=== PATIENT | male | born 1945 | race Caucasian/White ===

== ENCOUNTER 2022-11-15 20:49 | Inpatient (IN) | payer MEDICARE, OTHER ==
[~2022-11-15] VITALS: Ht 165.1 cm; Wt 68.2 kg
[2022-11-15 20:55] VITALS: BP 123/72
[2022-11-15] MEDS ORDERED: REMEDY ESSENTIAL ZINC PASTE 113 GM TOP PRN (21:45)
[2022-11-15] MEDS ORDERED: FERR-56 PO (22:08)
[2022-11-15] MEDS ORDERED: PIPE3.3749 IV (22:08)
[2022-11-15] MEDS ORDERED: ENOX40DI SQ (22:08)
[2022-11-15] MEDS ORDERED: TAMS-3 PO (22:08)
[2022-11-15] MEDS ORDERED: ACET325T53 PO (22:08)
[2022-11-15] MEDS ORDERED: METO-356 PO (22:08)
[2022-11-15] MEDS ORDERED: BENA20TA9 PO (22:08)
[2022-11-15] MEDS ORDERED: AMLO-212 PO (22:08)
[2022-11-15] MEDS ORDERED: zofran IV (22:08)
[2022-11-15] MEDS ORDERED: DULO20CA PO (22:08)
[2022-11-15] MEDS ORDERED: MAGN400O6 PO (22:08)
[2022-11-15] MEDS ORDERED: VANC750F2 IV (22:08)
[2022-11-15] MEDS ORDERED: MAG355OR18 PO (22:08)
[2022-11-15] MEDS ORDERED: ZOLP5TAB8 PO (22:08)
[2022-11-15] MEDS ORDERED: RIVA1PAT TP (22:08)
[2022-11-15] MEDS ORDERED: GABA-532 PO (22:08)
[2022-11-15] MEDS ORDERED: DOCU100C36 PO (22:08)
[2022-11-16 04:00] VITALS: BP 117/71
[2022-11-16] MEDS ORDERED: PIPERACILLIN SODIUM/TAZOBACTAM 3.375 G in IV DEXTROSE 5% 50 ML IV ONE (05:45)
[2022-11-16] MEDS ORDERED: PIPERACILLIN SODIUM/TAZOBACTAM 3.375 G in IV DEXTROSE 5% 50 ML IV SCH (06:00)
[2022-11-16 07:46] VITALS: BP 123/64
[2022-11-16] MEDS ORDERED: ONDA4TAB5 IV (13:05)
[2022-11-16] MEDS ORDERED: MAG HYDROX/AL HYDROX/SIMETH 30 ML LIQUID UDC PO PRN (14:15)
[2022-11-16] MEDS ORDERED: ONDANSETRON HCL 4 MG TABLET PO PRN (14:15)
[2022-11-16] MEDS ORDERED: ZOLPIDEM 5 MG TABLET PO PRN (14:15)
[2022-11-16] MEDS ORDERED: ACETAMINOPHEN 325 MG TABLET PO PRN (14:15)
[2022-11-16] MEDS ORDERED: PIPERACILLIN SODIUM/TAZO 3.375 GM VIAL IV SCH (14:15)
[2022-11-16] MEDS ORDERED: MAGNESIUM HYDROXIDE 30 ML LIQUID UDC PO PRN (14:15)
[2022-11-16] MEDS: BENAZEPRIL HCL 20 MG TABLET PO SCH (15:02)
[2022-11-16] MEDS: AMLODIPINE 5 MG TABLET PO SCH (15:02)
[2022-11-16] MEDS: DULOXETINE 20 MG CAPSULE.DR PO SCH (15:02)
[2022-11-16] MEDS: METOPROLOL SUCCINATE XL 25 MG TAB.SR.24H PO SCH (15:02)
[2022-11-16] MEDS: RIVASTIGMINE 4.6 MG PATCH TD SCH (15:05)
[2022-11-16] MEDS: PIPERACILLIN SODIUM/TAZOBACTAM 3.375 G in IV DEXTROSE 5% 100 ML IV SCH ×2 (15:30→23:54)
[2022-11-16 16:25] VITALS: BP 110/69
[2022-11-16] MEDS: FERROUS SULFATE 325 MG TABEC PO SCH (17:05)
[2022-11-16] MEDS: GABAPENTIN 300 MG CAPSULE PO SCH (17:05)
[2022-11-16] MEDS: DOCUSATE SODIUM 100 MG CAPSULE PO SCH (17:05)
[2022-11-16 17:14] LABS: HEMATOCRIT 34.1 % (36.7-47.1); MEAN CORPUSCULAR HEMOGLOBIN 27.5 uug (23.8-33.4); MEAN CORPUSCULAR VOLUME 81.7 fL (73.0-96.2); PLATELET COUNT (AUTO) 371 K/uL (152-348)
[2022-11-16 17:40] LABS: CREATININE 0.8 mg/dL (0.6-1.3)
[2022-11-16 17:47] LABS: POTASSIUM 2.8 mmol/L (3.5-5.1)
[2022-11-16 17:52] LABS: BILIRUBIN,TOTAL 0.3 mg/dL (0.2-1.0); TOTAL PROTEIN, SERUM 5.9 g/dL (6.4-8.2)
[2022-11-16] MEDS ORDERED: POTASSIUM CHLORIDE 20 MEQ TAB.PRT.SR PO ONE (18:15)
[2022-11-16] MEDS: VANCOMYCIN IV 750 MG in IV DEXTROSE 5% 250 ML IV SCH (18:25)
[2022-11-16 20:08] VITALS: BP 114/62
[2022-11-16] MEDS: TAMSULOSIN HCL 0.4 MG CAP.SR.24H PO SCH (20:28)
[2022-11-16] MEDS: ENOXAPARIN SODIUM 40 MG/0.4 ML DISP.SYRIN SQ SCH (20:30)
[2022-11-17] MEDS ORDERED: POTASSIUM CHLORIDE 10 MEQ TAB.PRT.SR PO ONE (01:00)
[2022-11-17 04:00] VITALS: BP 98/61
[2022-11-17] MEDS: VANCOMYCIN IV 750 MG in IV DEXTROSE 5% 250 ML IV SCH ×2 (06:02→17:49)
[2022-11-17] MEDS: PIPERACILLIN SODIUM/TAZOBACTAM 3.375 G in IV DEXTROSE 5% 100 ML IV SCH ×3 (07:13→21:24)
[2022-11-17 07:48] VITALS: BP 100/61
[2022-11-17] MEDS: FERROUS SULFATE 325 MG TABEC PO SCH ×2 (08:34→16:25)
[2022-11-17] MEDS: BENAZEPRIL HCL 20 MG TABLET PO SCH ×2 (08:34→08:36)
[2022-11-17] MEDS: GABAPENTIN 300 MG CAPSULE PO SCH ×2 (08:34→16:31)
[2022-11-17] MEDS: DULOXETINE 20 MG CAPSULE.DR PO SCH (08:34)
[2022-11-17] MEDS: METOPROLOL SUCCINATE XL 25 MG TAB.SR.24H PO SCH (08:35)
[2022-11-17] MEDS: RIVASTIGMINE 4.6 MG PATCH TD SCH (08:35)
[2022-11-17] MEDS: DOCUSATE SODIUM 100 MG CAPSULE PO SCH ×2 (08:35→16:25)
[2022-11-17] MEDS: AMLODIPINE 5 MG TABLET PO SCH ×2 (08:35→08:36)
[2022-11-17 15:50] VITALS: BP 102/54
[2022-11-17 20:10] VITALS: BP 103/64
[2022-11-17] MEDS: ENOXAPARIN SODIUM 40 MG/0.4 ML DISP.SYRIN SQ SCH (20:27)
[2022-11-17] MEDS: TAMSULOSIN HCL 0.4 MG CAP.SR.24H PO SCH (20:27)
[2022-11-18 04:11] VITALS: BP 122/69
[2022-11-18] MEDS: PIPERACILLIN SODIUM/TAZOBACTAM 3.375 G in IV DEXTROSE 5% 100 ML IV SCH ×3 (05:32→21:23)
[2022-11-18] MEDS: VANCOMYCIN IV 750 MG in IV DEXTROSE 5% 250 ML IV SCH (05:32)
[2022-11-18 06:19] LABS: HEMATOCRIT 33.3 % (36.7-47.1); MEAN CORPUSCULAR HEMOGLOBIN 27.7 uug (23.8-33.4); MEAN CORPUSCULAR VOLUME 81.9 fL (73.0-96.2); PLATELET COUNT (AUTO) 342 K/uL (152-348)
[2022-11-18 07:31] LABS: ALANINE AMINOTRANSFERASE 49 U/L (16-63); ALKALINE PHOSPHATASE 183 U/L (50-136); ASPARTATE AMINOTRANSFERASE 26 U/L (15-37); BILIRUBIN,TOTAL 0.3 mg/dL (0.2-1.0); CARBON DIOXIDE 23 mmol/L (21-32); CHLORIDE 103 mmol/L (98-107); CREATININE 0.7 mg/dL (0.6-1.3); GLUCOSE 101 mg/dL (74-106); MAGNESIUM 1.9 mg/dL (1.8-2.4); PHOSPHOROUS 3.9 mg/dL (2.5-4.9); POTASSIUM 3.5 mmol/L (3.5-5.1); UREA NITROGEN, BLOOD 4 mg/dL (7-18)
[2022-11-18 08:16] VITALS: BP 104/56
[2022-11-18] MEDS: DULOXETINE 20 MG CAPSULE.DR PO SCH (08:34)
[2022-11-18] MEDS: FERROUS SULFATE 325 MG TABEC PO SCH ×2 (08:35→17:28)
[2022-11-18] MEDS: RIVASTIGMINE 4.6 MG PATCH TD SCH (08:35)
[2022-11-18] MEDS: DOCUSATE SODIUM 100 MG CAPSULE PO SCH ×2 (08:35→17:28)
[2022-11-18] MEDS: GABAPENTIN 300 MG CAPSULE PO SCH ×2 (08:35→17:28)
[2022-11-18] MEDS: AMLODIPINE 5 MG TABLET PO SCH (08:41)
[2022-11-18] MEDS: METOPROLOL SUCCINATE XL 25 MG TAB.SR.24H PO SCH (08:42)
[2022-11-18] MEDS: BENAZEPRIL HCL 20 MG TABLET PO SCH (08:43)
[2022-11-18] MEDS: PROTEIN SUPPLEMENT (PROSTAT) 30 ML LIQUID PO SCH ×2 (10:31→17:18)
[2022-11-18 16:04] VITALS: BP 103/60
[2022-11-18 20:38] VITALS: BP 107/55
[2022-11-18] MEDS: METRONIDAZOLE 500 MG TABLET PO SCH (20:50)
[2022-11-18] MEDS: ENOXAPARIN SODIUM 40 MG/0.4 ML DISP.SYRIN SQ SCH (20:50)
[2022-11-18] MEDS: TAMSULOSIN HCL 0.4 MG CAP.SR.24H PO SCH (20:50)
[2022-11-19 04:15] VITALS: BP 102/63
[2022-11-19] MEDS: METRONIDAZOLE 500 MG TABLET PO SCH ×3 (05:07→21:38)
[2022-11-19] MEDS: PIPERACILLIN SODIUM/TAZOBACTAM 3.375 G in IV DEXTROSE 5% 100 ML IV SCH ×3 (05:56→21:43)
[2022-11-19 08:00] VITALS: BP 98/58
[2022-11-19] MEDS: BENAZEPRIL HCL 20 MG TABLET PO SCH ×2 (09:00→09:02)
[2022-11-19] MEDS: AMLODIPINE 5 MG TABLET PO SCH ×2 (09:00→09:02)
[2022-11-19] MEDS: METOPROLOL SUCCINATE XL 25 MG TAB.SR.24H PO SCH ×2 (09:00→09:01)
[2022-11-19] MEDS: DOCUSATE SODIUM 100 MG CAPSULE PO SCH ×2 (09:02→16:10)
[2022-11-19] MEDS: DULOXETINE 20 MG CAPSULE.DR PO SCH (09:02)
[2022-11-19] MEDS: GABAPENTIN 300 MG CAPSULE PO SCH ×2 (09:02→16:11)
[2022-11-19] MEDS: PROTEIN SUPPLEMENT (PROSTAT) 30 ML LIQUID PO SCH ×2 (09:03→17:06)
[2022-11-19] MEDS: FERROUS SULFATE 325 MG TABEC PO SCH ×2 (09:03→16:11)
[2022-11-19] MEDS: RIVASTIGMINE 4.6 MG PATCH TD SCH (09:07)
[2022-11-19 12:09] VITALS: BP 110/68
[2022-11-19 16:04] VITALS: BP 111/50
[2022-11-19 20:00] VITALS: BP 109/64
[2022-11-19] MEDS: TAMSULOSIN HCL 0.4 MG CAP.SR.24H PO SCH (21:38)
[2022-11-19] MEDS: ENOXAPARIN SODIUM 40 MG/0.4 ML DISP.SYRIN SQ SCH (21:42)
[2022-11-20 04:00] VITALS: BP 104/68
[2022-11-20] MEDS: PIPERACILLIN SODIUM/TAZOBACTAM 3.375 G in IV DEXTROSE 5% 100 ML IV SCH ×3 (05:32→22:01)
[2022-11-20] MEDS: METRONIDAZOLE 500 MG TABLET PO SCH (05:32)
[2022-11-20 07:31] VITALS: BP 119/66
[2022-11-20] MEDS: DULOXETINE 20 MG CAPSULE.DR PO SCH (09:03)
[2022-11-20] MEDS: FERROUS SULFATE 325 MG TABEC PO SCH ×2 (09:03→17:05)
[2022-11-20] MEDS: GABAPENTIN 300 MG CAPSULE PO SCH ×2 (09:03→17:06)
[2022-11-20] MEDS: RIVASTIGMINE 4.6 MG PATCH TD SCH (09:04)
[2022-11-20] MEDS: DOCUSATE SODIUM 100 MG CAPSULE PO SCH ×2 (09:04→17:05)
[2022-11-20] MEDS: PROTEIN SUPPLEMENT (PROSTAT) 30 ML LIQUID PO SCH ×2 (09:05→17:14)
[2022-11-20 15:23] VITALS: BP 110/63
[2022-11-20 20:00] VITALS: BP 111/67
[2022-11-20] MEDS: TAMSULOSIN HCL 0.4 MG CAP.SR.24H PO SCH (20:15)
[2022-11-20] MEDS: ENOXAPARIN SODIUM 40 MG/0.4 ML DISP.SYRIN SQ SCH (20:16)
[2022-11-21 04:00] VITALS: BP 106/68
[2022-11-21] MEDS: PIPERACILLIN SODIUM/TAZOBACTAM 3.375 G in IV DEXTROSE 5% 100 ML IV SCH (05:38)
[2022-11-21 07:54] VITALS: BP 108/65
[2022-11-21] MEDS: FERROUS SULFATE 325 MG TABEC PO SCH ×2 (08:12→16:26)
[2022-11-21] MEDS: AMLODIPINE 5 MG TABLET PO SCH (08:13)
[2022-11-21] MEDS: DOCUSATE SODIUM 100 MG CAPSULE PO SCH ×2 (08:13→16:26)
[2022-11-21] MEDS: BENAZEPRIL HCL 20 MG TABLET PO SCH (08:13)
[2022-11-21] MEDS: METOPROLOL SUCCINATE XL 25 MG TAB.SR.24H PO SCH (08:13)
[2022-11-21] MEDS: GABAPENTIN 300 MG CAPSULE PO SCH ×2 (08:13→16:26)
[2022-11-21] MEDS: DULOXETINE 20 MG CAPSULE.DR PO SCH (08:13)
[2022-11-21] MEDS: RIVASTIGMINE 4.6 MG PATCH TD SCH (08:14)
[2022-11-21] MEDS: PROTEIN SUPPLEMENT (PROSTAT) 30 ML LIQUID PO SCH ×2 (09:20→17:27)
[2022-11-21] MEDS: ACIDOPHILUS/BULGARICUS CHEW TAB PO SCH (12:54)
[2022-11-21 15:40] VITALS: BP 115/69
[2022-11-21 20:00] VITALS: BP 120/66
[2022-11-21] MEDS: TAMSULOSIN HCL 0.4 MG CAP.SR.24H PO SCH (20:34)
[2022-11-21] MEDS: ENOXAPARIN SODIUM 40 MG/0.4 ML DISP.SYRIN SQ SCH (20:35)
[2022-11-22 04:27] VITALS: BP 97/64
[2022-11-22 07:45] VITALS: BP 112/68
[2022-11-22 08:06] LABS: HEMATOCRIT 32.9 % (36.7-47.1); MEAN CORPUSCULAR VOLUME 81.9 fL (73.0-96.2); PLATELET COUNT (AUTO) 313 K/uL (152-348)
[2022-11-22 08:14] LABS: THYROID STIMULATING HORMONE 6.857 mIU/mL (0.358-3.740)
[2022-11-22 08:16] LABS: BILIRUBIN,TOTAL 0.3 mg/dL (0.2-1.0); CREATININE 0.7 mg/dL (0.6-1.3); MAGNESIUM 2.1 mg/dL (1.8-2.4); PHOSPHOROUS 3.7 mg/dL (2.5-4.9); POTASSIUM 3.6 mmol/L (3.5-5.1); TOTAL PROTEIN, SERUM 6.2 g/dL (6.4-8.2)
[2022-11-22] MEDS: DOCUSATE SODIUM 100 MG CAPSULE PO SCH ×2 (09:00→17:53)
[2022-11-22] MEDS: METOPROLOL SUCCINATE XL 25 MG TAB.SR.24H PO SCH (09:01)
[2022-11-22] MEDS: ACIDOPHILUS/BULGARICUS CHEW TAB PO SCH (09:01)
[2022-11-22] MEDS: GABAPENTIN 300 MG CAPSULE PO SCH ×2 (09:01→17:53)
[2022-11-22] MEDS: FERROUS SULFATE 325 MG TABEC PO SCH ×2 (09:01→17:53)
[2022-11-22] MEDS: DULOXETINE 20 MG CAPSULE.DR PO SCH (09:01)
[2022-11-22] MEDS: AMLODIPINE 5 MG TABLET PO SCH (09:02)
[2022-11-22] MEDS: BENAZEPRIL HCL 20 MG TABLET PO SCH (09:02)
[2022-11-22] MEDS: RIVASTIGMINE 4.6 MG PATCH TD SCH (09:02)
[2022-11-22] MEDS: PROTEIN SUPPLEMENT (PROSTAT) 30 ML LIQUID PO SCH ×2 (09:06→17:55)
[2022-11-22 16:00] VITALS: BP 103/60
[2022-11-22 20:00] VITALS: BP 102/63
[2022-11-22] MEDS: TAMSULOSIN HCL 0.4 MG CAP.SR.24H PO SCH (20:18)
[2022-11-22] MEDS: ENOXAPARIN SODIUM 40 MG/0.4 ML DISP.SYRIN SQ SCH (20:19)
[2022-11-23 04:00] VITALS: BP 100/60
[2022-11-23 08:06] VITALS: BP 112/66
[2022-11-23] MEDS: DULOXETINE 20 MG CAPSULE.DR PO SCH (09:03)
[2022-11-23] MEDS: ACIDOPHILUS/BULGARICUS CHEW TAB PO SCH (09:03)
[2022-11-23] MEDS: METOPROLOL SUCCINATE XL 25 MG TAB.SR.24H PO SCH (09:03)
[2022-11-23] MEDS: FERROUS SULFATE 325 MG TABEC PO SCH ×2 (09:03→17:03)
[2022-11-23] MEDS: DOCUSATE SODIUM 100 MG CAPSULE PO SCH ×2 (09:03→17:03)
[2022-11-23] MEDS: GABAPENTIN 300 MG CAPSULE PO SCH ×2 (09:03→17:03)
[2022-11-23] MEDS: RIVASTIGMINE 4.6 MG PATCH TD SCH (09:03)
[2022-11-23] MEDS: BENAZEPRIL HCL 20 MG TABLET PO SCH (09:04)
[2022-11-23] MEDS: AMLODIPINE 5 MG TABLET PO SCH (09:04)
[2022-11-23] MEDS: PROTEIN SUPPLEMENT (PROSTAT) 30 ML LIQUID PO SCH ×2 (09:05→17:04)
[2022-11-23 11:39] VITALS: BP 98/48
[2022-11-23 15:48] VITALS: BP 93/60
[2022-11-23 20:00] VITALS: BP 103/56
[2022-11-23] MEDS: ENOXAPARIN SODIUM 40 MG/0.4 ML DISP.SYRIN SQ SCH (21:01)
[2022-11-23] MEDS: TAMSULOSIN HCL 0.4 MG CAP.SR.24H PO SCH (21:01)
[2022-11-24 04:00] VITALS: BP 106/64
[2022-11-24 07:43] VITALS: BP 117/69
[2022-11-24] MEDS: DOCUSATE SODIUM 100 MG CAPSULE PO SCH ×2 (08:18→16:29)
[2022-11-24] MEDS: AMLODIPINE 5 MG TABLET PO SCH (08:18)
[2022-11-24] MEDS: FERROUS SULFATE 325 MG TABEC PO SCH ×2 (08:18→16:29)
[2022-11-24] MEDS: ACIDOPHILUS/BULGARICUS CHEW TAB PO SCH (08:18)
[2022-11-24] MEDS: GABAPENTIN 300 MG CAPSULE PO SCH ×2 (08:18→16:29)
[2022-11-24] MEDS: BENAZEPRIL HCL 20 MG TABLET PO SCH (08:18)
[2022-11-24] MEDS: DULOXETINE 20 MG CAPSULE.DR PO SCH (08:18)
[2022-11-24] MEDS: METOPROLOL SUCCINATE XL 25 MG TAB.SR.24H PO SCH (08:18)
[2022-11-24] MEDS: RIVASTIGMINE 4.6 MG PATCH TD SCH (08:19)
[2022-11-24] MEDS: PROTEIN SUPPLEMENT (PROSTAT) 30 ML LIQUID PO SCH ×2 (08:20→17:08)
[2022-11-24 15:24] VITALS: BP 118/79
[2022-11-24] MEDS: TAMSULOSIN HCL 0.4 MG CAP.SR.24H PO SCH (20:58)
[2022-11-24] MEDS: ENOXAPARIN SODIUM 40 MG/0.4 ML DISP.SYRIN SQ SCH (20:58)
[2022-11-25 08:00] VITALS: BP 105/65
[2022-11-25] MEDS: AMLODIPINE 5 MG TABLET PO SCH (09:00)
[2022-11-25] MEDS: BENAZEPRIL HCL 20 MG TABLET PO SCH (09:00)
[2022-11-25] MEDS: METOPROLOL SUCCINATE XL 25 MG TAB.SR.24H PO SCH (09:00)
[2022-11-25] MEDS: ACIDOPHILUS/BULGARICUS CHEW TAB PO SCH (09:25)
[2022-11-25] MEDS: GABAPENTIN 300 MG CAPSULE PO SCH ×2 (09:25→16:11)
[2022-11-25] MEDS: DOCUSATE SODIUM 100 MG CAPSULE PO SCH ×2 (09:25→16:11)
[2022-11-25] MEDS: FERROUS SULFATE 325 MG TABEC PO SCH ×2 (09:25→16:11)
[2022-11-25] MEDS: DULOXETINE 20 MG CAPSULE.DR PO SCH (09:25)
[2022-11-25] MEDS: PROTEIN SUPPLEMENT (PROSTAT) 30 ML LIQUID PO SCH ×2 (09:26→16:12)
[2022-11-25] MEDS: RIVASTIGMINE 4.6 MG PATCH TD SCH (09:26)
[2022-11-25 16:00] VITALS: BP 116/79
[2022-11-25 20:18] VITALS: BP 102/58
[2022-11-25] MEDS: TAMSULOSIN HCL 0.4 MG CAP.SR.24H PO SCH (20:38)
[2022-11-25] MEDS: ENOXAPARIN SODIUM 40 MG/0.4 ML DISP.SYRIN SQ SCH (20:39)
[2022-11-26 08:20] VITALS: BP 108/65
[2022-11-26] MEDS: ACIDOPHILUS/BULGARICUS CHEW TAB PO SCH (08:32)
[2022-11-26] MEDS: FERROUS SULFATE 325 MG TABEC PO SCH (08:32)
[2022-11-26] MEDS: DULOXETINE 20 MG CAPSULE.DR PO SCH (08:32)
[2022-11-26] MEDS: BENAZEPRIL HCL 20 MG TABLET PO SCH (08:32)
[2022-11-26] MEDS: GABAPENTIN 300 MG CAPSULE PO SCH (08:32)
[2022-11-26 08:33] VITALS: BP 108/65
[2022-11-26] MEDS: RIVASTIGMINE 4.6 MG PATCH TD SCH (08:33)
[2022-11-26] MEDS: METOPROLOL SUCCINATE XL 25 MG TAB.SR.24H PO SCH (08:33)
[2022-11-26] MEDS: AMLODIPINE 5 MG TABLET PO SCH (08:33)
[2022-11-26] MEDS: PROTEIN SUPPLEMENT (PROSTAT) 30 ML LIQUID PO SCH (08:33)
[2022-11-26] MEDS: DOCUSATE SODIUM 100 MG CAPSULE PO SCH (08:33)
== END 2022-11-26 15:15 | disposition home health service (06) | DRG 949 ==
PROVIDERS: ADMIT Physical Medicine & Rehabilitation Pain Medicine; ATTEND Physical Medicine & Rehabilitation Pain Medicine
DX: T81.43XD Infection following a procedure, organ and space surgical site, subsequent encounter (principal); E43 Unspecified severe protein-calorie malnutrition; K65.1 Peritoneal abscess; J90 Pleural effusion, not elsewhere classified; J98.11 Atelectasis; E87.1 Hypo-osmolality and hyponatremia; T81.31XD Disruption of external operation (surgical) wound, not elsewhere classified, subsequent encounter; D50.9 Iron deficiency anemia, unspecified; E86.1 Hypovolemia; J43.9 Emphysema, unspecified; N40.0 Benign prostatic hyperplasia without lower urinary tract symptoms; K21.9 Gastro-esophageal reflux disease without esophagitis; Z93.3 Colostomy status; Z85.038 Personal history of other malignant neoplasm of large intestine; I10 Essential (primary) hypertension; B95.2 Enterococcus as the cause of diseases classified elsewhere; D63.8 Anemia in other chronic diseases classified elsewhere; E78.5 Hyperlipidemia, unspecified; E87.6 Hypokalemia; E88.09 Other disorders of plasma-protein metabolism, not elsewhere classified; R73.03 Prediabetes; Z90.49 Acquired absence of other specified parts of digestive tract; S30.0XXA Contusion of lower back and pelvis, initial encounter; X58.XXXA Exposure to other specified factors, initial encounter; Y93.9 Activity, unspecified; Y92.9 Unspecified place or not applicable
CPT/HCPCS: 36415; 83550; 83735; 84100; 84443; 85025; 97535-GO-CO; A4663; A6213; J1650; J2543; J3370; J7040; J7050

== ENCOUNTER 2023-07-09 09:43 | Day surgery (SDC) | payer MEDICARE, OTHER ==
[~2023-07-09 09:43] MED LIST: ACID1TAB4 PO; AMOX-430 PO; ASCO500C18 PO; CHOL100062 PO; DULO20CA PO; EVOL140P3 SQ; FERR-56 PO; GABA-532 PO; LINE600T12 PO; RIVA1PAT TP; TAMS-3 PO; VITAMIN B PO
[2023-07-09] MEDS ORDERED: PROPOFOL 200 MG/20 ML BOTTLE ONE ×2 (11:00)
[2023-07-09] MEDS ORDERED: SIMETHICONE 40 MG/0.6 ML, 30ML BOTTLE ONE (11:00)
[2023-07-09 13:15] VITALS: TEMP 98.2
== END 2023-07-09 13:40 | disposition home or self-care (01) ==
LOC: DS 09:43
PROVIDERS: ATTEND Surgery
DX: Z12.11 Encounter for screening for malignant neoplasm of colon (principal); K57.30 Diverticulosis of large intestine without perforation or abscess without bleeding; D12.4 Benign neoplasm of descending colon; K56.699 Other intestinal obstruction unspecified as to partial versus complete obstruction; Z86.010 Personal history of colon polyps; K21.9 Gastro-esophageal reflux disease without esophagitis; I10 Essential (primary) hypertension; N40.0 Benign prostatic hyperplasia without lower urinary tract symptoms; J43.9 Emphysema, unspecified; D50.9 Iron deficiency anemia, unspecified; E78.5 Hyperlipidemia, unspecified; E11.9 Type 2 diabetes mellitus without complications; M19.90 Unspecified osteoarthritis, unspecified site; Z79.899 Other long term (current) drug therapy; Z98.890 Other specified postprocedural states
CPT/HCPCS: 36415; 45380; 45386; 82962; 85730; 93005; J7120; A4663; J3490

== ENCOUNTER 2024-09-25 06:31 | Inpatient (IN) | payer MEDICARE, OTHER ==
[~2024-09-25] VITALS: Ht 165.1 cm; Wt 82.6 kg
[2024-09-25 07:25] LABS: BASOPHILS # (AUTO) 0.1 K/UL (0.0-0.2); BASOPHILS % (AUTO) 1.1 % (0.0-2.0); HEMATOCRIT 46.7 % (36.7-47.1); LYMPHOCYTES # (AUTO) 2.5 K/uL (0.8-4.8); LYMPHOCYTES % (AUTO) 36.4 % (20.5-51.5); MEAN CORPUSCULAR HEMOGLOBIN 29.1 uug (23.8-33.4); MEAN CORPUSCULAR HGB CONC 34 g/dL (32.5-36.3); MONOCYTES # (AUTO) 0.7 K/uL (0.1-1.30); MONOCYTES % (AUTO) 9.6 % (0.0-11.0); NEUTROPHILS # (AUTO) 3.7 K/uL (1.8-8.9); NEUTROPHILS % (AUTO) 52.9 % (38.5-71.5); PLATELET COUNT (AUTO) 212 K/uL (152-348); WHITE BLOOD COUNT (AUTO) 6.9 K/uL (3.6-10.2)
[2024-09-25 07:40] LABS: DIFFERENTIAL COMMENT 1
[2024-09-25 07:42] LABS: CARBON DIOXIDE 25 mmol/L (21-32); CHLORIDE 104 mmol/L (98-107); CREATININE 1.5 mg/dL (0.6-1.3); GLUCOSE 104 mg/dL (74-106); SODIUM SERUM 144 mmol/L (136-145); UREA NITROGEN, BLOOD 22 mg/dL (7-18)
[2024-09-25 07:44] LABS: ALANINE AMINOTRANSFERASE 45 U/L (16-63); ALBUMIN 3.9 g/dL (3.4-5.0); ALKALINE PHOSPHATASE 74 U/L (50-136); ASPARTATE AMINOTRANSFERASE 23 U/L (15-37); BILIRUBIN,TOTAL 1.1 mg/dL (0.2-1.0); TOTAL PROTEIN, SERUM 8.7 g/dL (6.4-8.2)
[2024-09-25 07:46] LABS: *BLOOD, URINE NEGATIVE (NEGATIVE); *CLARITY,URINE CLEAR (CLEAR); *COLOR,URINE YELLOW (YELLOW); *KETONES,URINE NEGATIVE (NEGATIVE); *PROTEIN,URINE NEGATIVE (NEGATIVE); *UROBILINOGEN,URINE 0.2 E.U./dl (NORMAL); LEUKOCYTE ESTERASE ,URINE NEGATIVE (NEGATIVE); NITRITE, URINE NEGATIVE (NEGATIVE); UGLUCOSE NEGATIVE (NEGATIVE)
[2024-09-25 07:49] LABS: *BILIRUBIN,URIN 1+ (NEGATIVE)
[2024-09-25 07:51] LABS: BACTERIA,URINE NONE SEEN /HPF (NONE SEEN); RBC,URINE 0-3 /HPF (0-3); WBC,URINE 0-3 /HPF (0-3)
[2024-09-25 07:52] LABS: SQUAMOUS EPITHELIAL CELL,UR FEW /HPF (NONE SEEN)
[2024-09-25] MEDS ORDERED: CEFAZOLIN 2 G in IV DEXTROSE 5% 100 ML IV ONE (08:00)
[2024-09-25] MEDS ORDERED: FENTANYL CITRATE 100 MCG/2 ML AMPUL ONE (08:48)
[2024-09-25] MEDS ORDERED: MIDAZOLAM HCL 2 MG/2 ML VIAL ONE (08:49)
[2024-09-25] MEDS ORDERED: ROCURONIUM BROMIDE 50 MG/5 ML VIAL ONE ×2 (08:49→10:50)
[2024-09-25] MEDS ORDERED: KETAMINE HCL 500 MG/5 ML VIAL ONE (08:50)
[2024-09-25 08:51] VITALS: BP 129/80; TEMP 97.6; O2SAT 97
[2024-09-25] MEDS ORDERED: PROPOFOL 200 MG/20 ML BOTTLE ONE (09:20)
[2024-09-25] MEDS ORDERED: LABETALOL HCL 100 MG/20 ML VIAL IV PRN (09:30)
[2024-09-25] MEDS ORDERED: FENTANYL CITRATE 100 MCG/2 ML AMPUL IV PRN (09:30)
[2024-09-25] MEDS ORDERED: EPHEDRINE SULFATE 50 MG/ML AMPUL IV PRN (09:30)
[2024-09-25] MEDS ORDERED: ONDANSETRON 4 MG/2 ML VIAL IV PRN ×2 (09:30→13:30)
[2024-09-25] MEDS ORDERED: LIDOCAINE HCL 1% 20 ML VIAL ONE (09:58)
[2024-09-25] MEDS ORDERED: BUPIVACAINE/EPI PF 0.25% 10 ML VIAL IJ ONE (09:58)
[2024-09-25] MEDS ORDERED: NEOMY/BACITRAC/POLYMI OINT 28.35 GM TUBE ONE (09:58)
[2024-09-25] MEDS ORDERED: HYDROMORPHONE 1 MG/1 ML DISP.SYRIN IV PRN ×2 (12:15→15:30)
[2024-09-25] MEDS ORDERED: MAGNESIUM HYDROXIDE 30 ML LIQUID UDC PO PRN (13:30)
[2024-09-25] MEDS ORDERED: ZOLPIDEM 5 MG TABLET PO PRN (13:30)
[2024-09-25] MEDS ORDERED: REMEDY ESSENTIAL ZINC PASTE 113 GM TP PRN (13:30)
[2024-09-25] MEDS: IV LACTATED RINGERS SOLUTION 1,000 ML IV PRN (14:14)
[2024-09-25] MEDS ORDERED: CEFAZOLIN 1 G in IV DEXTROSE 5% 50 ML IV SCH (15:30)
[2024-09-25 15:34] VITALS: BP 148/81; TEMP 98.3; O2SAT 96
[2024-09-25] MEDS ORDERED: GABAPENTIN 300 MG CAPSULE PO SCH ×2 (17:00)
[2024-09-25] MEDS ORDERED: FERROUS SULFATE 325 MG TABEC PO SCH (17:00)
[2024-09-25] MEDS ORDERED: GABAPENTIN 100 MG CAPSULE PO SCH (17:00)
[2024-09-25] MEDS: CEFAZOLIN 1 G in IV DEXTROSE 5% 50 ML IV SCH (17:30)
[2024-09-25] MEDS: CELECOXIB 200 MG CAPSULE PO SCH (17:30)
[2024-09-25] MEDS: GABAPENTIN 100 MG CAPSULE PO SCH (17:30)
[2024-09-25] MEDS: ACETAMINOPHEN 325 MG TABLET PO SCH (17:30)
[2024-09-25 19:53] VITALS: BP 117/65; TEMP 98.6; O2SAT 94
[2024-09-25] MEDS ORDERED: LINEZOLID 600 MG TABLET PO SCH (21:00)
[2024-09-25] MEDS ORDERED: AMOXICILLIN-CLAVUL 875-125MG TABLET PO SCH (21:00)
[2024-09-25] MEDS: TAMSULOSIN HCL 0.4 MG CAP.SR.24H PO SCH (22:05)
[2024-09-25] MEDS: ACIDOPHILUS/BULGARICUS CHEW TAB PO SCH (22:05)
[2024-09-25] MEDS: ACETAMINOPHEN 325 MG TABLET PO PRN (23:08)
[2024-09-26 04:34] VITALS: BP 120/65; TEMP 98.3; O2SAT 95
[2024-09-26] MEDS: PANTOPRAZOLE SODIUM 40 MG TABLET.DR PO SCH (06:12)
[2024-09-26 07:12] LABS: BASOPHILS % (AUTO) 0.4 % (0.0-2.0); HEMATOCRIT 40.4 % (36.7-47.1); HEMOGLOBIN 13.9 g/dL (12.5-16.3); LYMPHOCYTES % (AUTO) 18.6 % (20.5-51.5); MEAN CORPUSCULAR HEMOGLOBIN 29.5 uug (23.8-33.4); MEAN CORPUSCULAR HGB CONC 35 g/dL (32.5-36.3); MEAN CORPUSCULAR VOLUME 85.7 fL (73.0-96.2); MONOCYTES # (AUTO) 1.1 K/uL (0.1-1.30); MONOCYTES % (AUTO) 10.1 % (0.0-11.0); NEUTROPHILS # (AUTO) 7.5 K/uL (1.8-8.9); NEUTROPHILS % (AUTO) 70.9 % (38.5-71.5); PLATELET COUNT (AUTO) 187 K/uL (152-348); RED BLOOD CELL COUNT(AUTO) 4.71 MIL/uL (4.06-5.63); RED CELL DISTRIBUTION WIDTH 13.9 % (12.1-16.2); WHITE BLOOD COUNT (AUTO) 10.5 K/uL (3.6-10.2)
[2024-09-26 07:24] LABS: DIFFERENTIAL COMMENT 1
[2024-09-26 07:31] LABS: CARBON DIOXIDE 25 mmol/L (21-32); CHLORIDE 108 mmol/L (98-107); CREATININE 1.4 mg/dL (0.6-1.3); GLUCOSE 117 mg/dL (74-106); MAGNESIUM 2.2 mg/dL (1.8-2.4); PHOSPHOROUS 4.4 mg/dL (2.5-4.9); POTASSIUM 3.7 mmol/L (3.5-5.1); SODIUM SERUM 142 mmol/L (136-145); UREA NITROGEN, BLOOD 21 mg/dL (7-18)
[2024-09-26 07:38] LABS: CALCIUM 8.4 mg/dL (8.5-10.1)
[2024-09-26] MEDS: CHOLECALCIFEROL 1,000 UNIT TABLET PO SCH (08:42)
[2024-09-26] MEDS: PANTOPRAZOLE SODIUM 40 MG VIAL IV SCH (08:43)
[2024-09-26] MEDS ORDERED: DULOXETINE 30 MG CAPSULE.DR PO SCH (09:00)
[2024-09-26] MEDS: RIVASTIGMINE 4.6 MG PATCH TD SCH (09:00)
[2024-09-26] MEDS ORDERED: VITAMIN B12 PO SCH (09:00)
[2024-09-26] MEDS ORDERED: Medication Not On Formulary EA (Ascorbic Acid (Vitamin C) 500 MG) PO SCH (09:00)
[2024-09-26] MEDS: CEFAZOLIN 1 G in IV DEXTROSE 5% 50 ML IV ONE (10:12)
[2024-09-26 10:28] LABS: *BILIRUBIN,URIN NEGATIVE (NEGATIVE); *BLOOD, URINE 2+ (NEGATIVE); *CLARITY,URINE SLIGHTLY CLOUDY (CLEAR); *COLOR,URINE YELLOW (YELLOW); *KETONES,URINE NEGATIVE (NEGATIVE); *PROTEIN,URINE 1+ (NEGATIVE); *UROBILINOGEN,URINE 0.2 E.U./dl (NORMAL); LEUKOCYTE ESTERASE ,URINE NEGATIVE (NEGATIVE); NITRITE, URINE NEGATIVE (NEGATIVE); PH,URINE 5.5 (5.0-8.0); UGLUCOSE NEGATIVE (NEGATIVE)
[2024-09-26 10:44] LABS: *CREATININE,URINE 344.5 mg/dL (30-125); *URINE TOTAL PROTEIN RANDOM 32.6 mg/dL (<150/24HR)
[2024-09-26 10:48] LABS: BACTERIA,URINE FEW /HPF (NONE SEEN); RBC,URINE 20-50 /HPF (0-3); WBC,URINE 0-3 /HPF (0-3)
[2024-09-26 10:49] LABS: URINE AMORPHOUS URATE FEW /HPF
[2024-09-26 11:16] VITALS: BP 117/68; TEMP 97.7; O2SAT 96
[2024-09-26 12:00] VITALS: O2SAT 96
[2024-09-26] MEDS ORDERED: MELO-107 PO (13:58)
[2024-09-26] MEDS ORDERED: DULO30CA2 PO (14:00)
[2024-09-26] MEDS ORDERED: METO-356 PO (14:01)
[2024-09-26] MEDS ORDERED: DEXL60CA3 PO (14:02)
[2024-09-26] MEDS ORDERED: MEMA28CA5 PO (14:02)
[2024-09-26] MEDS ORDERED: ICOS1CAP PO (14:03)
[2024-09-26 16:11] VITALS: BP 135/74; TEMP 98.1; O2SAT 93
[2024-09-26] MEDS ORDERED: Icosapent Ethyl (Vascepa) 1 GM) PO SCH (17:00)
[2024-09-26] MEDS: GABAPENTIN 300 MG CAPSULE PO SCH (17:55)
[2024-09-26] MEDS: MEMANTINE HCL 10 MG TABLET PO SCH (17:55)
[2024-09-26 19:56] VITALS: BP 142/77; TEMP 97.9; O2SAT 96
[2024-09-26 20:00] VITALS: BP 142/77; TEMP 97.9
[2024-09-27] VITALS (7 sets, daily range): BP systolic 123–146; BP diastolic 73–82; TEMP 97.7–98.4; O2SAT 87–96
[2024-09-27 07:55] LABS: BASOPHILS # (AUTO) 0.1 K/UL (0.0-0.2); BASOPHILS % (AUTO) 0.6 % (0.0-2.0); HEMATOCRIT 40.6 % (36.7-47.1); LYMPHOCYTES # (AUTO) 1.6 K/uL (0.8-4.8); LYMPHOCYTES % (AUTO) 18.9 % (20.5-51.5); MEAN CORPUSCULAR HEMOGLOBIN 29.8 uug (23.8-33.4); MEAN CORPUSCULAR HGB CONC 35 g/dL (32.5-36.3); MEAN CORPUSCULAR VOLUME 86.2 fL (73.0-96.2); MONOCYTES # (AUTO) 0.7 K/uL (0.1-1.30); MONOCYTES % (AUTO) 8.3 % (0.0-11.0); NEUTROPHILS % (AUTO) 72.2 % (38.5-71.5); PLATELET COUNT (AUTO) 175 K/uL (152-348); RED BLOOD CELL COUNT(AUTO) 4.71 MIL/uL (4.06-5.63); RED CELL DISTRIBUTION WIDTH 13.9 % (12.1-16.2); WHITE BLOOD COUNT (AUTO) 8.3 K/uL (3.6-10.2)
[2024-09-27 08:06] LABS: DIFFERENTIAL COMMENT 1
[2024-09-27 08:15] LABS: ALANINE AMINOTRANSFERASE 78 U/L (16-63); ALBUMIN 2.8 g/dL (3.4-5.0); ALKALINE PHOSPHATASE 67 U/L (50-136); ASPARTATE AMINOTRANSFERASE 56 U/L (15-37); BILIRUBIN,DIRECT 0.2 mg/dL (0.0-0.2); BILIRUBIN,TOTAL 0.8 mg/dL (0.2-1.0); CALCIUM 8.9 mg/dL (8.5-10.1); CARBON DIOXIDE 24 mmol/L (21-32); CHLORIDE 107 mmol/L (98-107); CREATINE KINASE, TOTAL 252 U/L (39-308); CREATININE 1.4 mg/dL (0.6-1.3); GLUCOSE 116 mg/dL (74-106); MAGNESIUM 2.5 mg/dL (1.8-2.4); PHOSPHOROUS 3.4 mg/dL (2.5-4.9); POTASSIUM 3.6 mmol/L (3.5-5.1); SODIUM SERUM 141 mmol/L (136-145); TOTAL PROTEIN, SERUM 6.8 g/dL (6.4-8.2); UREA NITROGEN, BLOOD 16 mg/dL (7-18)
[2024-09-27] MEDS: DULOXETINE 30 MG CAPSULE.DR PO SCH (08:23)
[2024-09-27] MEDS: MELOXICAM 7.5 MG TABLET PO SCH (08:24)
[2024-09-27] MEDS: METOPROLOL SUCCINATE XL 25 MG TAB.SR.24H PO SCH (08:24)
[2024-09-27] MEDS ORDERED: DULOXETINE 30 MG CAPSULE.DR PO SCH (09:00)
[2024-09-27] MEDS ORDERED: Medication Not On Formulary EA (Meloxicam 15 MG) PO SCH (09:00)
[2024-09-27] MEDS ORDERED: Medication Not On Formulary EA (Memantine HCl (Memantine HCl ER) 28 MG) PO SCH (09:00)
[2024-09-27] MEDS ORDERED: GABA300C PO (12:54)
[2024-09-29 08:09] LABS: PTH, INTACT 25 pg/mL (15-65)
[2024-09-29 10:07] LABS: A/G RATIO 0.9 (0.7-1.7); ALBUMIN 2.9 g/dL (2.9-4.4); ALPHA-1-GLOBULIN 0.4 g/dL (0.0-0.4); ALPHA-2-GLOBULIN 0.8 g/dL (0.4-1.0); BETA GLOBULIN 0.9 g/dL (0.7-1.3); GAMMA GLOBULIN 1.3 g/dL (0.4-1.8); GLOBULIN, TOTAL 3.4 g/dL (2.2-3.9); M-SPIKE Not Observed g/dL (Not Observed); PROTEIN, TOTAL 6.3 g/dL (6.0-8.5)
== END 2024-09-27 15:10 | disposition home health service (06) | DRG 353 ==
LOC: DS 06:31 → MEDSURG3 12:50
PROVIDERS: ADMIT Student in an Organized Health Care Education/Training Program; ATTEND Student in an Organized Health Care Education/Training Program
PROC: 0WUF0JZ Supplement Abdominal Wall with Synthetic Substitute, Open Approach (ICD-10-PCS; principal; 2024-09-25)
PROC: 0WBF0ZX Excision of Abdominal Wall, Open Approach, Diagnostic (ICD-10-PCS; 2024-09-25)
DX: K43.2 Incisional hernia without obstruction or gangrene (principal); N17.0 Acute kidney failure with tubular necrosis; D68.59 Other primary thrombophilia; K66.0 Peritoneal adhesions (postprocedural) (postinfection); D64.9 Anemia, unspecified; Z85.038 Personal history of other malignant neoplasm of large intestine; Z74.09 Other reduced mobility; N40.0 Benign prostatic hyperplasia without lower urinary tract symptoms; I12.9 Hypertensive chronic kidney disease with stage 1 through stage 4 chronic kidney disease, or unspecified chronic kidney disease; N18.9 Chronic kidney disease, unspecified; E66.9 Obesity, unspecified; Z68.30 Body mass index [BMI] 30.0-30.9, adult; R73.03 Prediabetes; Z90.49 Acquired absence of other specified parts of digestive tract; Z79.899 Other long term (current) drug therapy
CPT/HCPCS: 36415; 71045; 76770; 83735; 83970; 84100; 84155; 84165; 84300; 85025; 85730; 88341; 88342; 93005; A4649; A4663; C1781; G0378; J0690; J1100; J2250; J2405; J2470; J3010; J3490; J7120